=== PATIENT | female | born 1985 | race Caucasian/White ===

== ENCOUNTER → 2016-12-18 | Outpatient (REF) | payer BC | LOC: M LAB REF 13:07 | PROVIDERS: ATTEND Physician Assistant | DX: N39.0 Urinary tract infection, site not specified (principal) ==

== ENCOUNTER → 2017-02-19 | Outpatient (REF) | payer BC | LOC: M LAB REF 14:00 | PROVIDERS: ATTEND Nurse Practitioner Family | DX: Z70.9 Sex counseling, unspecified (principal) ==

== ENCOUNTER → 2017-03-26 | Outpatient (REF) | payer BC | LOC: M LAB REF 15:11 | PROVIDERS: ATTEND Physician Assistant | DX: N39.0 Urinary tract infection, site not specified (principal) ==

== ENCOUNTER → 2017-06-29 | Outpatient (CLI) | payer BC | LOC: M RAD 13:35 | DX: J34.2 Deviated nasal septum (principal) | CPT/HCPCS: 70486 ==

== ENCOUNTER 2017-10-12 09:07 | Day surgery (SDC) | payer BC ==
[2017-10-12] MEDS ORDERED: LR 1,000 ML IV ×2 (09:15→13:15)
[2017-10-12] MEDS ORDERED: LIDOCAINE 1% MDV 20ML VIAL SQ (09:15)
[2017-10-12 11:03] LABS: CONTROL LINE UCG INT CTR LINE PRESENT; URINE PREG TEST NEGATIVE (NEGATIVE)
[2017-10-12] MEDS ORDERED: LIDOCAINE 2% INJ 100 MG/5 ML SDV (FOR ANES.) As Ordered (11:50)
[2017-10-12] MEDS ORDERED: dexameTHASONE 4 MG/ML 1ML VIAL (J1100) As Ordered (11:50)
[2017-10-12] MEDS ORDERED: PROPOFOL 200 MG/20 ML VIAL As Ordered (11:50)
[2017-10-12] MEDS ORDERED: ONDANSETRON 4MG/2ML VIAL (J2405) As Ordered (11:50)
[2017-10-12] MEDS ORDERED: MIDAZOLAM INJ 2 MG/2 ML VIAL (J2250) As Ordered (11:50)
[2017-10-12] MEDS ORDERED: ROCURONIUM BROMIDE 50 MG/5 ML VIAL As Ordered (11:50)
[2017-10-12] MEDS ORDERED: fentaNYL 250 MCG/5 ML INJECTION (J3010) As Ordered (11:50)
[2017-10-12] MEDS: METHYLENE BLUE 0.5% (5MG/ML) 10 ML AMP (PROVAYBLUE)(Q9968 PER 1MG) As Ordered (12:23)
[2017-10-12] MEDS: LIDOCAINE W/EPINEPHRINE 1% 20ML VIAL As Ordered (12:23)
[2017-10-12] MEDS: OXYMETAZOLINE NASAL SPRAY (AFRIN) As Ordered (12:23)
[2017-10-12] MEDS ORDERED: NEOSTIGMINE 10 MG/10 ML VIAL (J2710) As Ordered (12:29)
[2017-10-12] MEDS ORDERED: GLYCOPYRROLATE INJ 0.2 MG/ML 2 ML VIAL As Ordered (12:29)
[2017-10-12] MEDS: SODIUM CHLORIDE 0.9% NASAL GEL 15MG (AYR) As Ordered (12:30)
[2017-10-12] MEDS ORDERED: ACETAMINOPH W/CODEINE #3 TAB UD PO (13:15)
[2017-10-12] MEDS ORDERED: HYDROmorphone HCL 1 MG/ML SYRINGE (J1170) IV (13:15)
[2017-10-12] MEDS ORDERED: METOCLOPRAMIDE INJ 10MG/2ML VIAL (J2765) IV (13:15)
[2017-10-12] MEDS ORDERED: PERCOCET 5MG/325MG TAB PO (13:15)
[2017-10-12] MEDS ORDERED: ONDANSETRON 4MG/2ML VIAL (J2405) IV (13:15)
[2017-10-12] MEDS ORDERED: fentaNYL 100 MCG/2 ML INJECTION (J3010) IV (13:15)
== END 2017-10-12 14:41 | disposition home or self-care (01) ==
LOC: M SDC 09:07
DX: J34.2 Deviated nasal septum (principal); J34.3 Hypertrophy of nasal turbinates
CPT/HCPCS: 30520

== ENCOUNTER 2018-03-01 12:01 | Emergency (ER) | payer OTHER, BC | END 2018-03-01 13:57 | disposition home or self-care (01) | LOC: M ED 12:01 | DX: S80.872A Other superficial bite, left lower leg, initial encounter (principal); W54.0XXA Bitten by dog, initial encounter; Y92.89 Other specified places as the place of occurrence of the external cause | CPT/HCPCS: 99283 ==

== ENCOUNTER → 2018-09-11 | Outpatient (REF) | payer BC ==
[~2018-09-11] MED LIST: AUGM500T34 PO; DIFL150T PO; NYST50SS PO
== END ==
LOC: M LAB REF 17:40
PROVIDERS: ATTEND Physician Assistant
DX: J02.9 Acute pharyngitis, unspecified (principal)

== ENCOUNTER → 2018-10-01 | Outpatient (REF) | payer BC | LOC: M LAB REF 12:25 | PROVIDERS: ATTEND Physician Assistant | DX: R30.0 Dysuria (principal) ==

== ENCOUNTER → 2018-10-08 | Outpatient (REF) | payer BC | LOC: M LAB REF 17:16 | PROVIDERS: ATTEND Physician Assistant | DX: N39.0 Urinary tract infection, site not specified (principal) ==

== ENCOUNTER → 2019-02-25 | Outpatient (REF) | payer BC ==
[2019-02-25 13:52] LABS: APPEARANCE, URINE CLOUDY (CLEAR); BACTERIA, URINE AUTO 1+ (NEGATIVE); BILIRUBIN, URINE AUTO NEGATIVE (NEGATIVE); BLOOD, URINE BLOOD NEGATIVE (NEGATIVE); COLOR, URINE AMBER (YELLOW); GLUCOSE, URINE (UA) AUTO NEGATIVE (NEGATIVE); KETONE, URINE AUTO TRACE mg/dL (NEGATIVE); LEUKOCYTE ESTERASE, URINE AUTO NEGATIVE (NEGATIVE); MUCUS, URINE MODERATE (NEGATIVE); NITRITE, URINE AUTO NEGATIVE (NEGATIVE); PROTEIN, URINE AUTO NEGATIVE (NEGATIVE); RBC, URINE AUTO 2 /HPF (0-3); SPECIFIC GRAVITY URINE AUTO 1.021 (1.002-1.035); SQUAMOUS EPITHELIAL CELL UR AU 26 /HPF (0-6); UROBILINOGEN, URINE AUTO 0.2 mg/dL (0.0-2.0); WBC, URINE AUTO 3 /HPF (0-3)
== END ==
LOC: M LAB REF 12:41
PROVIDERS: ATTEND Nurse Practitioner Women's Health
DX: N39.0 Urinary tract infection, site not specified (principal)

== ENCOUNTER → 2019-11-27 | Outpatient (CLI) | payer BC ==
[2019-12-04 15:08] LABS: STREP PNEUMO TYPE 1 1.7 ug/mL (>1.3); STREP PNEUMO TYPE 12F 1.8 ug/mL (>1.3); STREP PNEUMO TYPE 14 >29.1 ug/mL (>1.3); STREP PNEUMO TYPE 18C 0.6 ug/mL (>1.3); STREP PNEUMO TYPE 19A >44.7 ug/mL (>1.3); STREP PNEUMO TYPE 19F >45.2 ug/mL (>1.3); STREP PNEUMO TYPE 23F 0.4 ug/mL (>1.3); STREP PNEUMO TYPE 3 >55.8 ug/mL (>1.3); STREP PNEUMO TYPE 4 0.5 ug/mL (>1.3); STREP PNEUMO TYPE 6B 0.9 ug/mL (>1.3); STREP PNEUMO TYPE 7F 1.2 ug/mL (>1.3); STREP PNEUMO TYPE 8 >25.3 ug/mL (>1.3); STREP PNEUMO TYPE 9N 1.3 ug/mL (>1.3); STREP PNEUMO TYPE 9V 0.5 ug/mL (>1.3)
== END ==
LOC: M WUC 14:43
PROVIDERS: ATTEND Physician Assistant
DX: R53.83 Other fatigue (principal)

== ENCOUNTER → 2019-12-23 | Outpatient (REF) | payer BC | LOC: M LAB REF 17:51 | PROVIDERS: ATTEND Physician Assistant | DX: L30.8 Other specified dermatitis (principal) ==

== ENCOUNTER → 2020-01-05 | Outpatient (CLI) | payer BC ==
[2020-01-05 11:42] LABS: HEMATOCRIT 39.4 % (36.0-47.0); HEMOGLOBIN 12.9 g/dl (12.0-15.5); MEAN CORPUSCULAR HGB CONC 32.7 g/dl (32.0-36.5); MEAN CORPUSCULAR VOLUME 91.6 fl (80.0-96.0); PLATELET COUNT, AUTOMATED 217 10^3/uL (150-450); WHITE BLOOD COUNT 5.5 10^3/uL (4.0-10.0)
[2020-01-06 18:13] LABS: ANTINUCLEAR ANTIBODIES DIRECT Negative (Negative); Lyme Disease IgG/IgM Antibodie <0.91 ISR (0.00-0.90); Lyme Disease IgM Ab Quantitati <0.80 index (0.00-0.79)
== END ==
LOC: M PLALAB 10:43
PROVIDERS: ATTEND Physician Assistant
DX: R21 Rash and other nonspecific skin eruption (principal)

== ENCOUNTER → 2020-01-09 | Outpatient (CLI) | payer BC ==
--- NOTE | 2020-01-09 13:36 | REP ---
REASON: Dyspnea COMPARISON: No priors. FINDINGS: The superior mediastinal structures are midline. The cardiac silhouette is unremarkable in size, shape, and position. The diaphragmatic surfaces of the lungs are regular, and the costophrenic angles are clear. The pulmonary yoder are clear. The imaged osseous structures are intact. IMPRESSION: There is no acute cardiopulmonary disease. Electronically Signed by Ivan Guan DO 01/09/2020 05:01 P
== END ==
LOC: M WUC 11:28
PROVIDERS: ATTEND Physician Assistant
DX: R06.00 Dyspnea, unspecified (principal)

== ENCOUNTER → 2020-12-20 | Outpatient (CLI) | payer BC ==
[2020-12-20 17:59] LABS: BASO # 0.1 10^3/uL (0.0-0.2); BASO % 0.5 % (0.0-1.0); EOS # 0.2 10^3/uL (0.0-0.5); EOS % 2.2 % (0.0-3.0); HEMOGLOBIN 11.6 g/dl (12.0-15.5); LYMPH # 2.4 10^3/uL (1.5-5.0); MEAN CORPUSCULAR HEMOGLOBIN 30.4 pg (27.0-33.0); MEAN CORPUSCULAR HGB CONC 33.1 g/dl (32.0-36.5); MEAN CORPUSCULAR VOLUME 91.6 fl (80.0-96.0); MONO # 0.8 10^3/uL (0.0-0.8); MONO % 8.1 % (2.0-8.0); NEUTROPHILS # 6.7 10^3/uL (1.5-8.5); NEUTROPHILS % 65.7 % (36.0-66.0); PLATELET COUNT, AUTOMATED 212 10^3/uL (150-450); RED BLOOD COUNT 3.82 10^6/uL (4.00-5.40); WHITE BLOOD COUNT 10.2 10^3/uL (4.0-10.0)
[2020-12-20 20:11] LABS: CHLAMYDIA DNA AMPLIFICATION NEGATIVE (NEGATIVE); GC DNA AMPLIFICATION NEGATIVE (NEGATIVE)
== END ==
LOC: M LAB 16:37
PROVIDERS: ATTEND Advanced Practice Midwife
DX: Z34.01 Encounter for supervision of normal first pregnancy, first trimester (principal)

== ENCOUNTER → 2020-12-20 | Outpatient (CLI) | payer BC | LOC: M LAB 16:41 | PROVIDERS: ATTEND Family Medicine | DX: E55.9 Vitamin D deficiency, unspecified (principal) ==

== ENCOUNTER → 2020-12-31 | Outpatient (CLI) | payer BC | LOC: M LAB 16:42 | PROVIDERS: ATTEND Advanced Practice Midwife | DX: Z34.81 Encounter for supervision of other normal pregnancy, first trimester (principal) ==

== ENCOUNTER 2021-01-08 17:12 | Emergency (ER) | payer BC ==
[~2021-01-08] VITALS: Ht 157.5 cm; Wt 57.7 kg
[2021-01-08 18:30] LABS: BASO # 0.1 10^3/uL (0.0-0.2); BASO % 0.4 % (0.0-1.0); EOS # 0.3 10^3/uL (0.0-0.5); EOS % 2.2 % (0.0-3.0); HEMATOCRIT 35.9 % (36.0-47.0); HEMOGLOBIN 11.8 g/dl (12.0-15.5); LYMPH # 2.2 10^3/uL (1.5-5.0); LYMPH % 19.7 % (24.0-44.0); MEAN CORPUSCULAR HEMOGLOBIN 30.2 pg (27.0-33.0); MEAN CORPUSCULAR HGB CONC 32.9 g/dl (32.0-36.5); MEAN CORPUSCULAR VOLUME 91.8 fl (80.0-96.0); MONO # 0.9 10^3/uL (0.0-0.8); MONO % 7.6 % (2.0-8.0); NEUTROPHILS # 7.8 10^3/uL (1.5-8.5); NEUTROPHILS % 69.7 % (36.0-66.0); PLATELET COUNT, AUTOMATED 190 10^3/uL (150-450); RED BLOOD COUNT 3.91 10^6/uL (4.00-5.40); WHITE BLOOD COUNT 11.2 10^3/uL (4.0-10.0)
[2021-01-08 18:48] LABS: BLOOD UREA NITROGEN 11 MG/DL (7-18); CALCIUM LEVEL 8.6 MG/DL (8.5-10.1); CARBON DIOXIDE LEVEL 28 MEQ/L (21-32); CHLORIDE LEVEL 107 MEQ/L (98-107); CREATININE FOR GFR 0.44 MG/DL (0.55-1.30); GLOMERULAR FILTRATION RATE > 60.0 (>60); GLUCOSE, FASTING 88 MG/DL (70-100); POTASSIUM SERUM 3.8 MEQ/L (3.5-5.1); SODIUM LEVEL 141 MEQ/L (136-145)
--- NOTE | 2021-01-08 19:10 | REP ---
INDICATION: vaginal bleeding, 13 weeks . COMPARISON: None. TECHNIQUE: Transabdominal imaging. FINDINGS: Uterus is anteverted. There is a gestational sac in the body and fundus of the uterus. Within the sac is a pole with motion observed. Placenta is forming in the fundal location with no previa. I see no subchorionic bleed. Fetus has a crown-rump length 6.4 cm corresponding to 12 weeks 5 days which matches the LMP precisely giving EDC 07/18/2021. heart rate 153 ppm. No gross evidence for pelvic free fluid. IMPRESSION: 1. A single intrauterine gestation with crown-rump length at 6.4 cm corresponding to 12 weeks 5 days, precisely matching LMP and giving EDC 07/18/2021. 2. heart rate 153 and regular. No subchorionic bleed. Fundal placenta. <Electronically signed by Alfred Jernigan > 01/08/21 [id number]
[2021-01-08] MEDS ORDERED: NITR-67 PO (19:58)
[2021-01-08 20:05] VITALS: BP 112/66
== END 2021-01-08 20:23 | disposition home or self-care (01) ==
LOC: M ED 17:12
DX: O20.9 Hemorrhage in early pregnancy, unspecified (principal); R82.79 Other abnormal findings on microbiological examination of urine; Z3A.12 12 weeks gestation of pregnancy; Z87.440 Personal history of urinary (tract) infections

== ENCOUNTER → 2021-01-18 | Outpatient (REF) | payer BC ==
[~2021-01-18] MED LIST changes: +NITR-67 PO
[2021-01-18 13:55] LABS: APPEARANCE, URINE CLEAR (CLEAR); BACTERIA, URINE AUTO 2+ (NEGATIVE); BILIRUBIN, URINE AUTO NEGATIVE (NEGATIVE); BLOOD, URINE BLOOD NEGATIVE (NEGATIVE); COLOR, URINE STRAW (YELLOW); GLUCOSE, URINE (UA) AUTO NEGATIVE (NEGATIVE); KETONE, URINE AUTO NEGATIVE (NEGATIVE); LEUKOCYTE ESTERASE, URINE AUTO NEGATIVE (NEGATIVE); NITRITE, URINE AUTO NEGATIVE (NEGATIVE); PROTEIN, URINE AUTO NEGATIVE (NEGATIVE); RBC, URINE AUTO 0 /HPF (0-3); SPECIFIC GRAVITY URINE AUTO 1.001 (1.002-1.035); SQUAMOUS EPITHELIAL CELL UR AU 1 /HPF (0-6); UROBILINOGEN, URINE AUTO 0.2 mg/dL (0.0-2.0); WBC, URINE AUTO 1 /HPF (0-3)
== END ==
LOC: M SFHCWAGY 13:03
PROVIDERS: ATTEND Obstetrics & Gynecology
DX: N39.0 Urinary tract infection, site not specified (principal)

== ENCOUNTER → 2021-03-01 | Outpatient (CLI) | payer BC ==
--- NOTE | 2021-03-01 08:48 | REP ---
INDICATION: ANATOMY. COMPARISON: Comparison study January 08, 2021. TECHNIQUE: Transabdominal obstetric sonography. FINDINGS: Scanning through the gravid uterus demonstrates a viable single intrauterine gestation in transverse lie. motion is observed and heart rate is recorded at 132 beats per minute. A posterior placenta is seen, grade 1, without evidence of placenta previa. Closed cervical length is measured at 4.2 cm transabdominally. No extrauterine abnormality is observed. Amniotic fluid is subjectively normal. No anomaly is seen. The following anatomic structures are identified and felt to be sonographically unremarkable: cranium, choroid plexus, cavum, cerebellum and posterior fossa, face and profile, lungs, four-chamber heart with left and right ventricular outflow tract views, diaphragm, left-sided stomach, abdominal wall cord insertion, three-vessel umbilical cord, kidneys and bladder, spine, and upper and lower extremities. Biometry chart: BPD 4.6 cm, 20 weeks 0 days Head circumference 17.6 cm, 20 weeks 1 day Abdominal circumference 14.8 cm, 20 weeks 1 day Femur length 3.2 cm, 20 weeks 0 days Humeral length 3.1 cm, 20 weeks 3 days HC AC ratio normal 1.18 Cephalic index normal 0.72 Estimated weight 330 g, 0 lb 11 oz, 41st percentile for 20 weeks 1 day IMPRESSION: Viable single intrauterine gestation at 20 weeks 1 days by today's composite sonographic criteria. HSARA by today's sonography July 18, 2021. No complication identified. Expected gestational age estimate based on known SHARA of 18 July 2021 is 20 weeks 1 day. anatomic survey is felt to be complete. <Electronically signed by Micheal Garcia > 03/01/21 0853
== END ==
LOC: M WHC 07:25
PROVIDERS: ATTEND Advanced Practice Midwife
DX: Z36.3 Encounter for antenatal screening for malformations (principal); Z3A.20 20 weeks gestation of pregnancy

== ENCOUNTER 2021-03-17 10:53 | Emergency (ER) | payer BC ==
[~2021-03-17] VITALS: Ht 157.5 cm; Wt 61.8 kg
[2021-03-17] MEDS ORDERED: CLAR10CA3 PO (11:09)
[2021-03-17 18:33] VITALS: BP 108/70
== END 2021-03-17 18:40 | disposition home or self-care (01) ==
LOC: M ED 10:53
DX: O98.512 Other viral diseases complicating pregnancy, second trimester (principal); U07.1 COVID-19; R06.02 Shortness of breath; Z3A.22 22 weeks gestation of pregnancy

== ENCOUNTER → 2021-04-18 | Outpatient (REF) | payer BC ==
[~2021-04-18] MED LIST changes: +CLAR10CA3 PO
[2021-04-18 19:31] LABS: APPEARANCE, URINE CLEAR (CLEAR); BACTERIA, URINE AUTO 1+ (NEGATIVE); BILIRUBIN, URINE AUTO NEGATIVE (NEGATIVE); BLOOD, URINE BLOOD NEGATIVE (NEGATIVE); COLOR, URINE STRAW (YELLOW); GLUCOSE, URINE (UA) AUTO NEGATIVE (NEGATIVE); KETONE, URINE AUTO NEGATIVE (NEGATIVE); LEUKOCYTE ESTERASE, URINE AUTO NEGATIVE (NEGATIVE); NITRITE, URINE AUTO NEGATIVE (NEGATIVE); PROTEIN, URINE AUTO NEGATIVE (NEGATIVE); RBC, URINE AUTO 0 /HPF (0-3); SPECIFIC GRAVITY URINE AUTO 1.003 (1.002-1.035); SQUAMOUS EPITHELIAL CELL UR AU 0 /HPF (0-6); UROBILINOGEN, URINE AUTO 0.2 mg/dL (0.0-2.0); WBC, URINE AUTO 0 /HPF (0-3)
== END ==
LOC: M SFHCWAGY 17:43
PROVIDERS: ATTEND Advanced Practice Midwife
DX: R30.0 Dysuria (principal)

== ENCOUNTER → 2021-04-19 | Outpatient (CLI) | payer BC ==
[2021-04-19 17:51] LABS: HEMOGLOBIN 11.3 g/dl (12.0-15.5); MEAN CORPUSCULAR HEMOGLOBIN 31.9 pg (27.0-33.0); MEAN CORPUSCULAR HGB CONC 33.2 g/dl (32.0-36.5); PLATELET COUNT, AUTOMATED 199 10^3/uL (150-450); RED BLOOD COUNT 3.54 10^6/uL (4.00-5.40); WHITE BLOOD COUNT 13.2 10^3/uL (4.0-10.0)
[2021-04-19 19:37] LABS: GC DNA AMPLIFICATION NEGATIVE (NEGATIVE)
== END ==
LOC: M PLALAB 14:33
PROVIDERS: ATTEND Advanced Practice Midwife
DX: Z36.89 Encounter for other specified antenatal screening (principal); Z3A.24 24 weeks gestation of pregnancy

== ENCOUNTER 2021-04-25 10:24 | Outpatient (CLI) | payer BC ==
[~2021-04-25] VITALS: Ht 157.5 cm; Wt 67.2 kg
[2021-04-25] MEDS ORDERED: PRENTAB9 PO (10:44)
[2021-04-25] MEDS ORDERED: HOME MED LIST COMPLETE! XX SCH (10:45)
[2021-04-25 10:46] VITALS: BP 118/66
[2021-04-25 12:28] LABS: APPEARANCE, URINE CLEAR (CLEAR); BACTERIA, URINE AUTO NEGATIVE (NEGATIVE); BILIRUBIN, URINE AUTO NEGATIVE (NEGATIVE); BLOOD, URINE BLOOD NEGATIVE (NEGATIVE); COLOR, URINE YELLOW (YELLOW); GLUCOSE, URINE (UA) AUTO NEGATIVE (NEGATIVE); KETONE, URINE AUTO NEGATIVE (NEGATIVE); LEUKOCYTE ESTERASE, URINE AUTO NEGATIVE (NEGATIVE); MUCUS, URINE SMALL (NEGATIVE); NITRITE, URINE AUTO NEGATIVE (NEGATIVE); PROTEIN, URINE AUTO NEGATIVE (NEGATIVE); RBC, URINE AUTO 0 /HPF (0-3); SQUAMOUS EPITHELIAL CELL UR AU 0 /HPF (0-6); UROBILINOGEN, URINE AUTO 0.2 mg/dL (0.0-2.0); WBC, URINE AUTO 1 /HPF (0-3)
--- NOTE | 2021-04-25 13:02 | IPNPDOC ---
Text Note Date of Service The patient was seen on 04/25/21. NOTE S: Lorna is a at 28 0/7 days who presents to labor and delivery triage for evaluation of bright red vaginal bleeding that occurred twice and only noted when she wiped this morning. Lorna does state she was sexually active on Sunday evening. She reports positive movement and mild intermittent cramping, which she states she has had her entire . She denies abnormal vaginal discharge or urinary symptoms. Medical history: + COVID-19, 02/2021. pityriasis rosea. Surgical history: septoplasty 2017 Family history: hypertension, diabetes, celiac disease Social history: former smoker >10 years ago, denies alcohol, illicit drug use, or caffeine use. Denies history of STD. O: VS: see below General: alert and oriented x 3 Respiratory: respirations nonlabored on room air Abdomen: soft and NTTP Pelvic: SSE reveals cervix is visually closed, no friability noted on exam, no blood in vagina, no abnormal discharge, negative for fluid in vagina or noted in cervical os with valsalva maneuver. FHR: 135, strip appropriate gestational age. [place]: no contractions. A: IUP at 28 0/7 weeks gestation, vaginal bleeding, reassuring monitoring tracing. P: Pelvic ultrasound ordered. Urinalysis ordered. Both urinalysis and ultrasound were normal. No vaginal bleeding noted or continued vaginal bleeding during visit. Reviewed normal findings with patient. Discharged to home with precautions. Instructed to call office with any changes. She has an appointment in 4 days and instructed to go to her routine OB appointment. Patient verbalized understanding. VS,Fishbone, I+O VS, Fishbone, I+O Vital Signs Date Time Temp Pulse Resp B/P (MAP) Pulse Ox O2 Delivery O2 Flow Rate FiO2 04/25/21 10:46 98.7 80 18 118/66 (83) EXAMINATION REQUESTED: OBS FOLL UP OR REPEAT EACH GES REASON FOR PATIENT VISIT: BLEEDING REASON FOR EXAM/COMMENT: 28 weeks vaginal bleeding; evaluate placenta INDICATION: 28 weeks vaginal bleeding; evaluate placenta. COMPARISON: 03/01/2021 anatomy scan TECHNIQUE: Limited, follow-up Ob ultrasound. FINDINGS: Scanning demonstrates a viable single intrauterine gestation in a cephalic lie. motion is observed and heart rate is recorded at 135 beats per minute. A posterior fundal grade 1 placenta is seen without evidence of previa or abruption. Amniotic fluid is subjectively normal. Closed cervical length is measured at 3 cm transabdominally. No extrauterine abnormality is observed. Doppler tracing shows umbilical artery mid with S/D ratio 3.25 and normal forward diastolic flow. There has been appropriate interval growth. No anomaly is seen in the limited examination. Structures seen and unremarkable occlude the cranial vault, profile view of the face, nose and lips view, lungs, four-chamber heart view, left ventricular outflow tract, diaphragm, stomach, abdominal wall, kidneys and bladder. Other structures not visualized were all previously seen and unremarkable. A three-vessel cord is again seen. MOODY: 13.1 (9.4-22.8), largest pocket is 6.3 cm Biometry chart: BPD 7.2 cm; 29 weeks 0 days Head circumference 26.2 cm; 28 weeks 3 days Abdominal circumference 24.1 cm; 28 weeks 3 days Femur length 5.3 cm; 28 weeks 0 days Humeral length 4.8 cm; 28 weeks 0 days HC/AC ratio normal 1.08 Cephalic index normal 0.78 Estimated weight 1209 grams, 2 pounds 10 ounces, 50th percentile for 28 weeks 0 days. IMPRESSION: Viable single intrauterine gestation at 28 weeks 3 days by today's composite sonographic criteria. Expected gestational age estimate based on prior sonography is 28 weeks is 0 days. SHARA by prior sonography 07/18/2021. No anomaly. Posterior fundal grade 1 placenta without previa or abruption. Normal amniotic fluid volume with cephalic presentation and heart rate 135 and regular. Normal amniotic fluid volume <Electronically signed by Alfred Jernigan > 04/25/21 [id number] KRISTINA LITTLEJOHN CNM Apr 25, 2021 13:02
--- NOTE | 2021-04-25 13:22 | REP ---
INDICATION: 28 weeks vaginal bleeding; evaluate placenta. COMPARISON: 03/01/2021 anatomy scan TECHNIQUE: Limited, follow-up Ob ultrasound. FINDINGS: Scanning demonstrates a viable single intrauterine gestation in a cephalic lie. motion is observed and heart rate is recorded at 135 beats per minute. A posterior fundal grade 1 placenta is seen without evidence of previa or abruption. Amniotic fluid is subjectively normal. Closed cervical length is measured at 3 cm transabdominally. No extrauterine abnormality is observed. Doppler tracing shows umbilical artery mid with S/D ratio 3.25 and normal forward diastolic flow. There has been appropriate interval growth. No anomaly is seen in the limited examination. Structures seen and unremarkable occlude the cranial vault, profile view of the face, nose and lips view, lungs, four-chamber heart view, left ventricular outflow tract, diaphragm, stomach, abdominal wall, kidneys and bladder. Other structures not visualized were all previously seen and unremarkable. A three-vessel cord is again seen. MOODY: 13.1 (9.4-22.8), largest pocket is 6.3 cm Biometry chart: BPD 7.2 cm; 29 weeks 0 days Head circumference 26.2 cm; 28 weeks 3 days Abdominal circumference 24.1 cm; 28 weeks 3 days Femur length 5.3 cm; 28 weeks 0 days Humeral length 4.8 cm; 28 weeks 0 days HC/AC ratio normal 1.08 Cephalic index normal 0.78 Estimated weight 1209 grams, 2 pounds 10 ounces, 50th percentile for 28 weeks 0 days. IMPRESSION: Viable single intrauterine gestation at 28 weeks 3 days by today's composite sonographic criteria. Expected gestational age estimate based on prior sonography is 28 weeks is 0 days. SHARA by prior sonography 07/18/2021. No anomaly. Posterior fundal grade 1 placenta without previa or abruption. Normal amniotic fluid volume with cephalic presentation and heart rate 135 and regular. Normal amniotic fluid volume <Electronically signed by Alfred Jernigan > 04/25/21 [id number]
== END 2021-04-25 14:10 | disposition home or self-care (01) ==
LOC: M LDO 10:24
PROVIDERS: ATTEND Advanced Practice Midwife
DX: O26.892 Other specified pregnancy related conditions, second trimester (principal); Z3A.28 28 weeks gestation of pregnancy
CPT/HCPCS: 59025; 76816; 76820; 81001; G0378; G0463

== ENCOUNTER → 2021-04-29 | Outpatient (CLI) | payer BC ==
[~2021-04-29] MED LIST changes: +PRENTAB9 PO
== END ==
LOC: M LAB 07:07
PROVIDERS: ATTEND Advanced Practice Midwife
DX: O99.810 Abnormal glucose complicating pregnancy (principal); Z3A.00 Weeks of gestation of pregnancy not specified

== ENCOUNTER → 2021-06-20 | Outpatient (REF) | payer BC, OTHER | LOC: M SFHCWAGY 16:45 | PROVIDERS: ATTEND Advanced Practice Midwife | DX: Z36.89 Encounter for other specified antenatal screening (principal); Z3A.00 Weeks of gestation of pregnancy not specified ==

== ENCOUNTER → 2022-03-29 | Outpatient (REF) | payer OTHER | LOC: M LAB REF 12:28 | PROVIDERS: ATTEND Physician Assistant | DX: J02.9 Acute pharyngitis, unspecified (principal) ==

== ENCOUNTER → 2022-04-12 | Outpatient (REF) | payer OTHER | LOC: M PLALAB 07:56 | PROVIDERS: ATTEND Advanced Practice Midwife | DX: Z12.4 Encounter for screening for malignant neoplasm of cervix (principal); R87.610 Atypical squamous cells of undetermined significance on cytologic smear of cervix (ASC-US) | CPT/HCPCS: 87624; G0123 ==

== ENCOUNTER → 2023-03-14 | Outpatient (CLI) | payer OTHER ==
[~2023-03-14] MED LIST changes: +NYST-38 PO; -NYST50SS PO
== END ==
LOC: M LAB 09:25
PROVIDERS: ATTEND Allergy & Immunology Allergy
DX: J30.1 Allergic rhinitis due to pollen (principal)

== ENCOUNTER → 2023-06-14 | Outpatient (CLI) | payer OTHER ==
[2023-06-14 14:54] LABS: HCG, SERUM QUALITATIVE POSITIVE (NEGATIVE)
== END ==
LOC: M PLALAB 11:02
PROVIDERS: ATTEND Specialist
DX: N92.6 Irregular menstruation, unspecified (principal)

== ENCOUNTER → 2023-06-15 | Outpatient (CLI) | payer OTHER | LOC: M PLALAB 08:43 | PROVIDERS: ATTEND Specialist | DX: N92.6 Irregular menstruation, unspecified (principal) ==

== ENCOUNTER → 2023-07-11 | Outpatient (CLI) | payer OTHER ==
[2023-07-11 15:45] LABS: BASO % 0.6 % (0.0-1.0); EOS # 0.2 10^3/uL (0.0-0.5); HEMATOCRIT 36.6 % (36.0-47.0); LYMPH # 2.1 10^3/uL (1.5-5.0); LYMPH % 42.9 % (24.0-44.0); MEAN CORPUSCULAR HEMOGLOBIN 29.7 pg (27.0-33.0); MEAN CORPUSCULAR HGB CONC 32.8 g/dl (32.0-36.5); MEAN CORPUSCULAR VOLUME 90.6 fl (80.0-96.0); MONO # 0.4 10^3/uL (0.0-0.8); MONO % 7.2 % (2.0-8.0); NEUTROPHILS # 2.3 10^3/uL (1.5-8.5); NEUTROPHILS % 45.3 % (36.0-66.0); PLATELET COUNT, AUTOMATED 195 10^3/uL (150-450); RED BLOOD COUNT 4.04 10^6/uL (4.00-5.40)
[2023-07-11 16:15] LABS: THYROID STIMULATING HORMONE 0.777 uIU/ML (0.55-4.78)
[2023-07-11 16:17] LABS: IRON (FE) 119 UG/DL (50-170); PERCENT SATURATION 38.5 % (13.2-45.0); TOTAL IRON BINDING CAPACITY 309 UG/DL (250-425)
[2023-07-11 16:18] LABS: ALKALINE PHOSPHATASE 38 U/L (46-116); ALT/SGPT 13 U/L (7.0-40); AST/SGOT 10 U/L (<34); BILIRUBIN,TOTAL 0.4 MG/DL (0.3-1.2); BLOOD UREA NITROGEN 12 MG/DL (9-23); CALCIUM LEVEL 8.6 MG/DL (8.5-10.1); CARBON DIOXIDE LEVEL 29 MMOL/L (20-31); CHLORIDE LEVEL 107 MMOL/L (98-107); CREATININE FOR GFR 0.64 MG/DL (0.55-1.30); GLOMERULAR FILTRATION RATE > 60.0 (>60); GLUCOSE, FASTING 114 MG/DL (60-100); HCG, SERUM QUANTITATIVE 11.7 MIU/ML (<4.2); SODIUM LEVEL 141 MMOL/L (136-145); TOTAL PROTEIN 6.9 G/DL (5.7-8.2)
[2023-07-11 16:22] LABS: FREE T4 0.99 NG/DL (0.89-1.76)
[2023-07-11 16:23] LABS: FERRITIN 18.7 NG/ML (7.3-270.7)
== END ==
LOC: M PLALAB 12:48
PROVIDERS: ATTEND Physician Assistant
DX: O02.1 Missed abortion (principal); I95.1 Orthostatic hypotension

== ENCOUNTER → 2023-08-21 | Outpatient (CLI) | payer OTHER ==
[2023-08-21 14:53] LABS: BASO % 0.4 % (0.0-1.0); EOS # 0.1 10^3/uL (0.0-0.5); EOS % 1.9 % (0.0-3.0); HEMATOCRIT 38.3 % (36.0-47.0); HEMOGLOBIN 12.6 g/dl (12.0-15.5); LYMPH # 2.2 10^3/uL (1.5-5.0); LYMPH % 32.4 % (24.0-44.0); MEAN CORPUSCULAR HEMOGLOBIN 29.6 pg (27.0-33.0); MEAN CORPUSCULAR HGB CONC 32.9 g/dl (32.0-36.5); MEAN CORPUSCULAR VOLUME 89.9 fl (80.0-96.0); MONO # 0.4 10^3/uL (0.0-0.8); MONO % 6.2 % (2.0-8.0); PLATELET COUNT, AUTOMATED 216 10^3/uL (150-450); RED BLOOD COUNT 4.26 10^6/uL (4.00-5.40); WHITE BLOOD COUNT 6.8 10^3/uL (4.0-10.0)
[2023-08-21 15:23] LABS: ALBUMIN 3.9 G/DL (3.2-5.2); ALKALINE PHOSPHATASE 40 U/L (46-116); ALT/SGPT 16 U/L (7.0-40); AST/SGOT 9 U/L (<34); BILIRUBIN,TOTAL 0.4 MG/DL (0.3-1.2); BLOOD UREA NITROGEN 12 MG/DL (9-23); CALCIUM LEVEL 8.9 MG/DL (8.5-10.1); CARBON DIOXIDE LEVEL 30 MMOL/L (20-31); CHLORIDE LEVEL 107 MMOL/L (98-107); CREATININE FOR GFR 0.64 MG/DL (0.55-1.30); GLOMERULAR FILTRATION RATE > 60.0 (>60); GLUCOSE, FASTING 107 MG/DL (60-100); IRON (FE) 68 UG/DL (50-170); PERCENT SATURATION 21.8 % (13.2-45.0); POTASSIUM SERUM 3.9 MMOL/L (3.5-5.1); SODIUM LEVEL 139 MMOL/L (136-145); TOTAL IRON BINDING CAPACITY 312 UG/DL (250-425)
[2023-08-21 15:27] LABS: FOLATE 18.9 NG/ML (>5.4); FOLLICLE STIMULATING HORMONE 10.5 mIU/ML; TOTAL 25(OH) VITAMIN D 55.3 NG/ML (20.0-100.0); VITAMIN B12 LEVEL 876 PG/ML (211-911)
[2023-08-21 15:28] LABS: ESTRADIOL 292.3 PG/ML; FERRITIN 15.9 NG/ML (7.3-270.7); LUTEINIZING HORMONE 62.4 mIU/ML
[2023-08-23 14:08] LABS: TESTOSTERONE FREE (DIRECT) 1.1 pg/mL (0.0-4.2)
== END ==
LOC: M LAB 13:53
PROVIDERS: ATTEND Physician Assistant
DX: R53.83 Other fatigue (principal)

== ENCOUNTER → 2023-10-19 | Outpatient (CLI) | payer OTHER ==
[2023-10-19 13:22] LABS: FOLLICLE STIMULATING HORMONE 4.1 mIU/ML
[2023-10-19 13:23] LABS: LUTEINIZING HORMONE 5.4 mIU/ML
== END ==
LOC: M PLALAB 11:08
PROVIDERS: ATTEND Physician Assistant
DX: E28.8 Other ovarian dysfunction (principal)

== ENCOUNTER → 2024-01-26 | Outpatient (CLI) | payer OTHER ==
[2024-01-26 20:24] LABS: APPEARANCE, URINE CLEAR (CLEAR); BACTERIA, URINE AUTO NEGATIVE (NEGATIVE); BILIRUBIN, URINE AUTO NEGATIVE (NEGATIVE); BLOOD, URINE BLOOD NEGATIVE (NEGATIVE); COLOR, URINE YELLOW (YELLOW); GLUCOSE, URINE (UA) AUTO NEGATIVE (NEGATIVE); KETONE, URINE AUTO NEGATIVE (NEGATIVE); LEUKOCYTE ESTERASE, URINE AUTO NEGATIVE (NEGATIVE); NITRITE, URINE AUTO NEGATIVE (NEGATIVE); PROTEIN, URINE AUTO NEGATIVE (NEGATIVE); RBC, URINE AUTO 1 /HPF (0-3); SPECIFIC GRAVITY URINE AUTO 1.009 (1.002-1.035); SQUAMOUS EPITHELIAL CELL UR AU 0 /HPF (0-6); UROBILINOGEN, URINE AUTO 0.2 mg/dL (0.0-2.0); WBC, URINE AUTO 0 /HPF (0-3)
== END ==
LOC: M LAB 19:09
PROVIDERS: ATTEND Physician Assistant Medical
DX: N39.0 Urinary tract infection, site not specified (principal)

== ENCOUNTER → 2024-01-29 | Outpatient (CLI) | payer OTHER | LOC: M RAD 13:11 | PROVIDERS: ATTEND Family Medicine | DX: R10.2 Pelvic and perineal pain (principal) ==

== ENCOUNTER → 2024-02-06 | Outpatient (REF) | payer OTHER ==
[2024-02-06 15:34] LABS: APPEARANCE, URINE CLEAR (CLEAR); BACTERIA, URINE AUTO NEGATIVE (NEGATIVE); BILIRUBIN, URINE AUTO NEGATIVE (NEGATIVE); BLOOD, URINE BLOOD NEGATIVE (NEGATIVE); COLOR, URINE STRAW (YELLOW); GLUCOSE, URINE (UA) AUTO NEGATIVE (NEGATIVE); KETONE, URINE AUTO NEGATIVE (NEGATIVE); LEUKOCYTE ESTERASE, URINE AUTO NEGATIVE (NEGATIVE); MUCUS, URINE SMALL (NEGATIVE); NITRITE, URINE AUTO NEGATIVE (NEGATIVE); PROTEIN, URINE AUTO NEGATIVE (NEGATIVE); RBC, URINE AUTO 0 /HPF (0-3); SPECIFIC GRAVITY URINE AUTO 1.005 (1.002-1.035); SQUAMOUS EPITHELIAL CELL UR AU 0 /HPF (0-6); UROBILINOGEN, URINE AUTO 0.2 mg/dL (0.0-2.0); WBC, URINE AUTO 1 /HPF (0-3)
== END ==
LOC: M PLALAB 14:13
PROVIDERS: ATTEND Advanced Practice Midwife
DX: R32 Unspecified urinary incontinence (principal); R35.0 Frequency of micturition

== ENCOUNTER → 2024-02-14 | Outpatient (CLI) | payer OTHER | LOC: M WHC 12:34 | PROVIDERS: ATTEND Advanced Practice Midwife | DX: R10.2 Pelvic and perineal pain (principal); N80.03 Adenomyosis of the uterus; M54.50 Low back pain, unspecified; N83.292 Other ovarian cyst, left side; N28.89 Other specified disorders of kidney and ureter ==

== ENCOUNTER → 2024-02-15 | Outpatient (CLI) | payer OTHER ==
[2024-02-15 10:32] LABS: HCG, SERUM QUALITATIVE NEGATIVE (NEGATIVE)
== END ==
LOC: M PLALAB 08:26
PROVIDERS: ATTEND Advanced Practice Midwife
DX: R10.2 Pelvic and perineal pain (principal)

== ENCOUNTER → 2024-02-26 | Outpatient (CLI) | payer OTHER ==
[2024-02-26 14:17] LABS: BASO % 0.8 % (0.0-1.0); EOS # 0.1 10^3/uL (0.0-0.5); EOS % 2.3 % (0.0-3.0); HEMATOCRIT 38.5 % (36.0-47.0); HEMOGLOBIN 12.8 g/dl (12.0-15.5); LYMPH % 39.8 % (24.0-44.0); MEAN CORPUSCULAR HEMOGLOBIN 30.6 pg (27.0-33.0); MEAN CORPUSCULAR HGB CONC 33.2 g/dl (32.0-36.5); MEAN CORPUSCULAR VOLUME 92.1 fl (80.0-96.0); MONO # 0.4 10^3/uL (0.0-0.8); MONO % 7.2 % (2.0-8.0); NEUTROPHILS # 2.5 10^3/uL (1.5-8.5); NEUTROPHILS % 49.7 % (36.0-66.0); PLATELET COUNT, AUTOMATED 229 10^3/uL (150-450); RED BLOOD COUNT 4.18 10^6/uL (4.00-5.40); WHITE BLOOD COUNT 5.1 10^3/uL (4.0-10.0)
[2024-02-26 14:35] LABS: ERYTHROCYTE SEDIMENTATION RATE 8 mm/hr (0-20)
[2024-02-26 14:50] LABS: C REACTIVE PROTEIN QUANTITATIV < 0.40 MG/DL (<1.0)
[2024-02-26 14:52] LABS: ALBUMIN 4.3 G/DL (3.2-5.2); ALKALINE PHOSPHATASE 43 U/L (46-116); ALT/SGPT 24 U/L (7.0-40); AST/SGOT 12 U/L (<34); BILIRUBIN,TOTAL 0.4 MG/DL (0.3-1.2); BLOOD UREA NITROGEN 14 MG/DL (9-23); CALCIUM LEVEL 8.9 MG/DL (8.5-10.1); CARBON DIOXIDE LEVEL 29 MMOL/L (20-31); CHLORIDE LEVEL 104 MMOL/L (98-107); CREATININE FOR GFR 0.66 MG/DL (0.55-1.30); FREE T4 1.08 NG/DL (0.89-1.76); GLOMERULAR FILTRATION RATE > 60.0 (>60); GLUCOSE, FASTING 90 MG/DL (60-100); POTASSIUM SERUM 3.8 MMOL/L (3.5-5.1); RHEUMATOID FACTOR QUANT 4.2 IU/ML (<14); SODIUM LEVEL 138 MMOL/L (136-145); THYROID STIMULATING HORMONE 1.705 uIU/ML (0.55-4.78); TOTAL 25(OH) VITAMIN D 31.3 NG/ML (20.0-100.0); TOTAL PROTEIN 7.6 G/DL (5.7-8.2)
[2024-02-26 15:09] LABS: HEMOGLOBIN A1c 5.1 % (4.0-6.0)
[2024-02-28 13:13] LABS: CYCLIC CITRULLINATED PEPTIDE < 16 UNITS (<20)
[2024-02-28 13:37] LABS: ANA SCREEN, IFA NEGATIVE (NEGATIVE)
[2024-02-29 08:58] LABS: IgG P18 AB NON-REACTIVE; IgG P23 AB NON-REACTIVE; IgG P28 AB NON-REACTIVE; IgG P30 AB NON-REACTIVE; IgG P39 AB NON-REACTIVE; IgG P41 AB NON-REACTIVE; IgG P45 AB NON-REACTIVE; IgG P58 AB REACTIVE; IgG P66 AB NON-REACTIVE; IgG P93 AB NON-REACTIVE; IgM P23 AB NON-REACTIVE; IgM P39 AB NON-REACTIVE; IgM P41 AB REACTIVE; LYME IgG WB INTERPRETATION NEGATIVE (NEGATIVE); LYME IgM WB INTERPRETATION NEGATIVE (NEGATIVE)
[2024-03-13 14:08] LABS: CARBONIC ANHYDRASE VI IgA ABS 13.2 EU/ml (<20.0); CARBONIC ANHYDRASE VI IgM ABS 8.2 EU/ml (<20.0); PAROTID SPECIFIC PROTEIN IgA 4.7 EU/ml (<20.0); PAROTID SPECIFIC PROTEIN IgG 3.8 EU/ml (<20.0); SALIVARY PROTEIN 1 IgG 6.1 EU/ml (<20.0); SALIVARY PROTEIN 1 IgM 52.6 EU/ml (<20.0)
== END ==
LOC: M PLALAB 11:18
PROVIDERS: ATTEND Family Medicine
DX: R68.2 Dry mouth, unspecified (principal); R35.0 Frequency of micturition

== ENCOUNTER → 2024-02-26 | Outpatient (REF) | payer OTHER | LOC: M LAB REF 17:21 | PROVIDERS: ATTEND Family Medicine | DX: R35.0 Frequency of micturition (principal) ==

== ENCOUNTER → 2024-02-29 | Outpatient (CLI) | payer OTHER ==
[~2024-02-29] MED LIST changes: +ISOVUE-370 76% 100ML VIAL ONE
== END ==
LOC: M PLAIMG 09:28 → MERGE 10:00
PROVIDERS: ATTEND Specialist
DX: N28.9 Disorder of kidney and ureter, unspecified (principal)
CPT/HCPCS: 74178; Q9967

== ENCOUNTER → 2024-03-12 | Outpatient (CLI) | payer OTHER ==
[~2024-03-12] MED LIST changes: -ISOVUE-370 76% 100ML VIAL ONE
== END ==
LOC: M PLAIMG 13:19 → M PLALAB 13:19
PROVIDERS: ATTEND Family Medicine
DX: M54.6 Pain in thoracic spine (principal)

== ENCOUNTER → 2024-04-01 | Outpatient (CLI) | payer OTHER | LOC: M WHC 10:42 | PROVIDERS: ATTEND Advanced Practice Midwife | DX: R10.2 Pelvic and perineal pain (principal); N83.202 Unspecified ovarian cyst, left side ==

== ENCOUNTER → 2024-04-04 | Outpatient (CLI) | payer OTHER ==
[2024-04-04 18:47] LABS: HEMOGLOBIN A1c 5.2 % (4.0-6.0)
[2024-04-04 19:02] LABS: THYROID STIMULATING HORMONE 0.799 uIU/ML (0.55-4.78)
[2024-04-04 19:03] LABS: PROLACTIN 6.12 NG/ML
[2024-04-04 19:04] LABS: FREE T4 1.15 NG/DL (0.89-1.76)
[2024-04-06 04:28] LABS: DEHYDROEPIANDROSTERONE SULFATE 130 mcg/dL (19-237)
== END ==
LOC: M PLALAB 13:55
PROVIDERS: ATTEND Advanced Practice Midwife
DX: N83.01 Follicular cyst of right ovary (principal); N83.02 Follicular cyst of left ovary; R10.2 Pelvic and perineal pain; N92.6 Irregular menstruation, unspecified

== ENCOUNTER → 2024-05-26 | Outpatient (REF) | payer OTHER | LOC: M LAB REF 17:58 | PROVIDERS: ATTEND Family Medicine | DX: R30.0 Dysuria (principal) ==

== ENCOUNTER → 2024-06-12 | Outpatient (CLI) | payer OTHER ==
[2024-06-12 13:34] LABS: HEMATOCRIT 39.9 % (36.0-47.0); HEMOGLOBIN 13.2 g/dl (12.0-15.5); MEAN CORPUSCULAR HEMOGLOBIN 30.1 pg (27.0-33.0); MEAN CORPUSCULAR HGB CONC 33.1 g/dl (32.0-36.5); MEAN CORPUSCULAR VOLUME 91.1 fl (80.0-96.0); PLATELET COUNT, AUTOMATED 209 10^3/uL (150-450); RED BLOOD COUNT 4.38 10^6/uL (4.00-5.40); WHITE BLOOD COUNT 9.8 10^3/uL (4.0-10.0)
[2024-06-12 14:26] LABS: HIV 1&2 SCREEN NEGATIVE (NEGATIVE)
[2024-06-12 14:35] LABS: HEPATITIS C VIRUS ABY INDEX 0.02 INDEX (<0.8)
[2024-06-12 14:56] LABS: GC DNA AMPLIFICATION NEGATIVE (NEGATIVE)
== END ==
LOC: M PLALAB 08:52
PROVIDERS: ATTEND Obstetrics & Gynecology
DX: Z34.80 Encounter for supervision of other normal pregnancy, unspecified trimester (principal)

== ENCOUNTER → 2024-07-17 | Outpatient (CLI) | payer OTHER | LOC: M PLALAB 09:31 | PROVIDERS: ATTEND Obstetrics & Gynecology | DX: Z34.82 Encounter for supervision of other normal pregnancy, second trimester (principal) ==

== ENCOUNTER → 2024-08-08 | Outpatient (CLI) | payer OTHER | LOC: M WHC 09:32 | PROVIDERS: ATTEND Obstetrics & Gynecology | DX: Z36.89 Encounter for other specified antenatal screening (principal); Z3A.18 18 weeks gestation of pregnancy; O32.1XX0 Maternal care for breech presentation, not applicable or unspecified; O35.03X0 Maternal care for (suspected) central nervous system malformation or damage in fetus, choroid plexus cysts, not applicable or unspecified ==

== ENCOUNTER → 2024-08-20 | Outpatient (CLI) | payer OTHER ==
[2024-08-21 13:08] LABS: SSA SJOGRENS A <1.0 NEG AI (<1.0 NEG); SSB SJOGRENS B <1.0 NEG AI (<1.0 NEG)
== END ==
LOC: M PLALAB 09:40
PROVIDERS: ATTEND Family Medicine
DX: R68.2 Dry mouth, unspecified (principal)

== ENCOUNTER → 2024-09-15 | Outpatient (CLI) | payer OTHER ==
[2024-09-15 13:02] LABS: GLUCOSE CHALLENGE TEST 1 HOUR 154 MG/DL (LESS THAN 140)
[2024-09-15 13:05] LABS: HEMATOCRIT 32.4 % (36.0-47.0); HEMOGLOBIN 10.6 g/dl (12.0-15.5); MEAN CORPUSCULAR HEMOGLOBIN 31.2 pg (27.0-33.0); MEAN CORPUSCULAR HGB CONC 32.7 g/dl (32.0-36.5); MEAN CORPUSCULAR VOLUME 95.3 fl (80.0-96.0); PLATELET COUNT, AUTOMATED 169 10^3/uL (150-450); WHITE BLOOD COUNT 14.2 10^3/uL (4.0-10.0)
[2024-09-15 13:37] LABS: HIV 1&2 SCREEN NEGATIVE (NEGATIVE)
[2024-09-15 13:45] LABS: HEPATITIS C VIRUS ABY INDEX 0.03 INDEX (<0.8)
[2024-09-15 14:10] LABS: Trichomonas vaginalis (AMP) NOT DETECTED (NEGATIVE)
[2024-09-15 14:33] LABS: GC DNA AMPLIFICATION NEGATIVE (NEGATIVE)
== END ==
LOC: M PLALAB 09:29
PROVIDERS: ATTEND Obstetrics & Gynecology
DX: Z34.80 Encounter for supervision of other normal pregnancy, unspecified trimester (principal)

== ENCOUNTER → 2024-09-19 | Outpatient (REF) | payer OTHER ==
[2024-09-19 10:48] LABS: APPEARANCE, URINE CLEAR (CLEAR); BACTERIA, URINE AUTO NEGATIVE (NEGATIVE); BILIRUBIN, URINE AUTO NEGATIVE (NEGATIVE); BLOOD, URINE BLOOD NEGATIVE (NEGATIVE); COLOR, URINE YELLOW (YELLOW); GLUCOSE, URINE (UA) AUTO NEGATIVE (NEGATIVE); KETONE, URINE AUTO NEGATIVE (NEGATIVE); LEUKOCYTE ESTERASE, URINE AUTO NEGATIVE (NEGATIVE); MUCUS, URINE SMALL (NEGATIVE); NITRITE, URINE AUTO NEGATIVE (NEGATIVE); PROTEIN, URINE AUTO NEGATIVE (NEGATIVE); RBC, URINE AUTO 1 /HPF (0-3); SPECIFIC GRAVITY URINE AUTO 1.017 (1.002-1.035); SQUAMOUS EPITHELIAL CELL UR AU 1 /HPF (0-6); UROBILINOGEN, URINE AUTO 0.2 mg/dL (0.0-2.0); WBC, URINE AUTO 1 /HPF (0-3)
== END ==
LOC: M SFHCWAGY 10:09
PROVIDERS: ATTEND Advanced Practice Midwife
DX: R30.0 Dysuria (principal)

== ENCOUNTER → 2024-09-22 | Outpatient (CLI) | payer OTHER | LOC: M LAB 07:35 | PROVIDERS: ATTEND Obstetrics & Gynecology | DX: O99.810 Abnormal glucose complicating pregnancy (principal) ==

== ENCOUNTER → 2024-11-13 | Outpatient (CLI) | payer OTHER ==
[2024-11-13 14:46] LABS: HEMOGLOBIN 9.8 g/dl (12.0-15.5); MEAN CORPUSCULAR HEMOGLOBIN 29.3 pg (27.0-33.0); MEAN CORPUSCULAR HGB CONC 31.6 g/dl (32.0-36.5); MEAN CORPUSCULAR VOLUME 92.8 fl (80.0-96.0); PLATELET COUNT, AUTOMATED 179 10^3/uL (150-450); RED BLOOD COUNT 3.34 10^6/uL (4.00-5.40); WHITE BLOOD COUNT 10.9 10^3/uL (4.0-10.0)
[2024-11-13 15:17] LABS: FERRITIN 5.5 NG/ML (7.3-270.7)
== END ==
LOC: M PLALAB 10:25
PROVIDERS: ATTEND Nurse Practitioner Family
DX: R53.83 Other fatigue (principal); R06.02 Shortness of breath

== ENCOUNTER → 2025-03-11 | Outpatient (CLI) | payer OTHER ==
[2025-03-11 13:49] LABS: PLATELET COUNT, AUTOMATED 235 10^3/uL (150-450)
[2025-03-11 13:50] LABS: IRON (FE) 87 UG/DL (50-170); PERCENT SATURATION 35.2 % (13.2-45.0)
[2025-03-11 13:51] LABS: ALT/SGPT 22 U/L (7.0-40); AST/SGOT 16 U/L (<34); CALCIUM LEVEL 9.2 MG/DL (8.5-10.1); CARBON DIOXIDE LEVEL 29 MMOL/L (20-31); CHLORIDE LEVEL 105 MMOL/L (98-107); CREATININE FOR GFR 0.68 MG/DL (0.55-1.30); GLOMERULAR FILTRATION RATE > 90.0 (>60); POTASSIUM SERUM 4.1 MMOL/L (3.5-5.1); SODIUM LEVEL 138 MMOL/L (136-145)
[2025-03-11 13:52] LABS: FREE T4 1.12 NG/DL (0.89-1.76)
== END ==
LOC: M PLALAB 10:11
PROVIDERS: ATTEND Advanced Practice Midwife
DX: Z01.419 Encounter for gynecological examination (general) (routine) without abnormal findings (principal)

== ENCOUNTER → 2025-03-11 | Outpatient (CLI) | payer OTHER | LOC: M PLAIMG 10:09 | PROVIDERS: ATTEND Family Medicine | DX: M54.16 Radiculopathy, lumbar region (principal) ==

== ENCOUNTER → 2025-05-08 | Outpatient (REF) | payer OTHER ==
[2025-05-08 18:19] LABS: BASO # 0.0 10^3/uL (0.0-0.2); BASO % 0.6 % (0.0-1.0); EOS # 0.1 10^3/uL (0.0-0.5); EOS % 1.9 % (0.0-3.0); LYMPH # 2.0 10^3/uL (1.5-5.0); LYMPH % 37.7 % (24.0-44.0); MONO # 0.3 10^3/uL (0.0-0.8); MONO % 5.5 % (2.0-8.0); NEUTROPHILS # 2.9 10^3/uL (1.5-8.5); NEUTROPHILS % 54.1 % (36.0-66.0); PLATELET COUNT, AUTOMATED 263 10^3/uL (150-450)
[2025-05-08 18:35] LABS: C REACTIVE PROTEIN QUANTITATIV < 0.50 MG/DL (<1.0); LDH LACTATE DEHYDROGENASE 132 U/L (120-246)
[2025-05-08 18:36] LABS: ALT/SGPT 23 U/L (7.0-40); AST/SGOT 17 U/L (<34); CALCIUM LEVEL 8.8 MG/DL (8.5-10.1); CARBON DIOXIDE LEVEL 27 MMOL/L (20-31); CHLORIDE LEVEL 102 MMOL/L (98-107); CPK CREATINE PHOSPHOKINASE 57 U/L (34-145); CREATININE FOR GFR 0.61 MG/DL (0.55-1.30); GLOMERULAR FILTRATION RATE > 90.0 (>60); POTASSIUM SERUM 3.8 MMOL/L (3.5-5.1); SODIUM LEVEL 139 MMOL/L (136-145)
[2025-05-08 18:37] LABS: TOTAL 25(OH) VITAMIN D 36.5 NG/ML (20.0-100.0)
[2025-05-12 15:11] LABS: IgG SUBCLASS 4(ONLY) 34.5 mg/dL (4.0-86.0)
[2025-05-12 15:47] LABS: ANGIOTENSIN 1 CONVERTING ENZYM 32.0 U/L (9-67)
[2025-05-12 17:28] LABS: ALDOLASE 3.6 U/L (< OR = 8.1)
== END ==
LOC: M SFHCRHEU 13:54
PROVIDERS: ATTEND Internal Medicine Rheumatology
DX: R68.2 Dry mouth, unspecified (principal); R06.02 Shortness of breath